=== PATIENT | male | born 1985 | race Caucasian/White ===

== ENCOUNTER 2023-12-02 09:13 | Emergency (ER) | payer SELFPAY ==
[2023-12-02 10:05] LABS: BASOPHILS PERCENT AUTO 0.3 % (0.3-3.8); BLOOD UREA NITROGEN,BUN 15 mg/dL (7-18); CALCIUM 8.8 mg/dL (8.6-10.2); CARBON DIOXIDE,CO2 32 mmol/L (21-32); CHLORIDE,CL 107 mmol/L (100-110); EOSINOPHILS ABSOLUTE AUTO 0.2 x10-3/uL (0.0-0.6); EOSINOPHILS PERCENT AUTO 1.8 % (0.1-6.8); ESTIMATED GFR 99 mL/min (>60); GLUCOSE RANDOM 95 mg/dL (80-116); HEMATOCRIT 45.2 % (38.3-50.1); HEMOGLOBIN 14.8 g/dL (12.9-17.7); LYMPHOCYTES ABSOLUTE AUTO 1.7 x10-3/uL (0.5-4.5); LYMPHOCYTES PERCENT AUTO 13.3 % (15.8-45.3); MEAN CORPUSCULAR HEMOGLOBIN 31.7 pg (27.0-33.3); MEAN CORPUSCULAR HGB CONC 32.7 g/dL (28.7-35.3); MEAN CORPUSCULAR VOLUME 96.9 fL (80.8-98.7); MEAN PLATELET VOLUME 7.4 fL (6.7-11.0); MONOCYTES ABSOLUTE AUTO 0.7 x10-3/uL (0.0-1.2); MONOCYTES PERCENT AUTO 5.5 % (5.5-15.2); NEUTROPHILS ABSOLUTE AUTO 10.1 x10-3/uL (1.7-6.9); NEUTROPHILS PERCENT AUTO 79.1 % (40.3-71.8); PLATELET COUNT,PLT 283 x10(3)uL (117-477); POTASSIUM,K 4.5 mmol/L (3.5-5.3); RED BLOOD CELL COUNT 4.66 x10(6)uL (3.90-5.90); RED CELL DISTRIBUTION WIDTH 13.5 % (12.4-15.0); SODIUM,NA 145 mmol/L (135-145); WHITE BLOOD CELL COUNT,WBC 12.8 x10-3/uL (3.2-10.1)
[2023-12-02 10:08] LABS: INR 1.02 (1.00-1.24); PROTHROMBIN TIME 10.6 sec (9.0-11.1)
[2023-12-02 10:16] LABS: A/G RATIO 1.2; ALANINE AMINOTRANSFERASE,ALT 18 U/L (12-36); ALBUMIN 3.8 g/dL (3.5-5.2); ALKALINE PHOSPHATASE 55 IU/L (56-112); ASPARTATE AMNIOTRANSFERASE,AST 12 IU/L (5-25); BILIRUBIN TOTAL 0.7 mg/dL (0.1-1.3)
[2023-12-02] MEDS: Iopamidol 755 Mg/ML 100 ML Bottle IV SCH (11:39)
== END 2023-12-02 13:13 | disposition home or self-care (01) ==
LOC: FB.ED 09:13
DX: K62.5 Hemorrhage of anus and rectum (principal); K52.9 Noninfective gastroenteritis and colitis, unspecified; D72.829 Elevated white blood cell count, unspecified; F17.210 Nicotine dependence, cigarettes, uncomplicated
CPT/HCPCS: 36415; 74177; 80053; 85025; 85610; 86140; 87507; 99285; Q9967; 99284